=== PATIENT | male | born 2000 | race Caucasian/White ===

== ENCOUNTER 2018-06-17 23:41 | Emergency (ER) | payer MEDICAID ==
[2018-06-17 23:56] VITALS: BP 141/88
--- NOTE | 2018-06-18 00:36 | EDM.PDOC ---
ED HPI GENERAL MEDICAL PROBLEM - General Chief Complaint: Abdominal Pain Stated Complaint: abdominal pain Time Seen by Provider: 06/18/18 00:11 Source of Information: Reports: Patient, Family History Limitations: Reports: No Limitations - History of Present Illness INITIAL COMMENTS - FREE TEXT/NARRATIVE: This is a 17-year-old male. He has a J-tube. They were attempting to feed him tonight when he had a severe pain in the upper abdomen and got sick to his stomach. It has kind of eased up at this time but they did not give him his evening feed due to the pain. He indicated that sometimes the J-tube will get pulled out of the jejunum and into the stomach and when they try to feed him when it's like that he'll get abdominal pain and nausea. They're here to have him checked to see if this was happened to the J-tube. He just got off antibiotics for a sinus congestion he's had no fever no chills and no other acute symptoms. Epigastric Pain Score (Numeric/FACES): 6 - Related Data Allergies Allergy/AdvReac Type Severity Reaction Status Date / Time metoclopramide [From Reglan] Allergy Seizure Verified 06/17/18 23:56 Sulfa (Sulfonamide Allergy Stomach Verified 06/17/18 23:56 Antibiotics) Upset Home Meds: Home Meds LORazepam [LORazepam Intensol] 2 mg GTUBE BID 03/06/16 [History] Omeprazole 20 mg GTUBE DAILY 03/06/16 [History] Zolpidem [Ambien] 10 mg GTUBE BEDTIME 03/06/16 [History] atoMOXetine HCl [Strattera] 100 mg GTUBE DAILY 03/06/16 [History] cloNIDine HCl [Catapres] 0.6 mg GTUBE BEDTIME 03/06/16 [History] lamoTRIgine [Lamictal] 200 mg GTUBE BID 03/06/16 [History] risperiDONE [Risperidone] 4 mg GTUBE BID 03/06/16 [History] Naltrexone 50 mg GTUBE DAILY 06/17/18 [History] Trihexyphenidyl 5 mg GTUBE BIDMEALS 06/17/18 [History] Past Medical History Gastrointestinal History: Reports: GERD Neurological History: Reports: Seizure Endocrine/Metabolic History: Reports: Other (See Below) - Past Surgical History GI Surgical History: Reports: Other (See Below) Other GI Surgeries/Procedures: GJ tube Neurological Surgical History: Reports: Other (See Below) Social & Family History - Tobacco Use Smoking Status *Q: Never Smoker - Caffeine Use Caffeine Use: Reports: None - Recreational Drug Use Recreational Drug Use: No - Living Situation & Occupation Living situation: Reports: with Family Occupation: Student ED ROS GENERAL - Review of Systems Review Of Systems: See Below Constitutional: Denies: Fever, Chills HEENT: Reports: No Symptoms Respiratory: Reports: No Symptoms Cardiovascular: Reports: No Symptoms Endocrine: Reports: No Symptoms GI/Abdominal: Reports: Abdominal Pain, Nausea, Other (J-tube placement). Denies : Diarrhea, Vomiting : Reports: No Symptoms Musculoskeletal: Reports: No Symptoms Skin: Reports: No Symptoms Neurological: Reports: No Symptoms Psychiatric: Reports: No Symptoms Hematologic/Lymphatic: Reports: No Symptoms ED EXAM, GI/ABD - Physical Exam Exam: See Below Exam Limited By: No Limitations General Appearance: Alert, WD/WN, No Apparent Distress Eyes: Bilateral: Normal Appearance Ears: Normal External Exam Nose: Normal Inspection Throat/Mouth: Normal Lips, Normal Voice, No Airway Compromise Head: Normocephalic Neck: Supple Respiratory/Chest: No Respiratory Distress, Lungs Clear, Normal Breath Sounds Cardiovascular: Regular Rate, Rhythm, No Murmur, Tachycardia GI/Abdominal Exam: Soft, Non-Tender, Other (J-tube is in the epigastric area, it appears to be clean at the stoma no evidence of infection or drainage, palpation of the abdomen reveals some fullness in the upper abdomen but is nontender no tenderness in the lower abdomen, bowel sounds are quiet but they are present) Back Exam: Full Range of Motion Extremities: Normal Inspection, Normal Range of Motion Neurological: Alert, Oriented Psychiatric: Normal Affect, Normal Mood, Other (Slow mentation) Skin Exam: Warm, Dry Course - Vital Signs Last Recorded V/S: Last Vital Signs Temp 97.8 F 06/17/18 23:52 Pulse 106 H 06/17/18 23:52 Resp 16 06/17/18 23:52 BP 141/88 H 06/17/18 23:52 Pulse Ox 98 06/17/18 23:52 - Orders/Labs/Meds Orders: Active Orders 24 hr Category Date Time Status KUB [Abdomen 1V Flat] [CR] Stat Exams 06/18/18 00:22 Ordered - Radiology Interpretation Free Text/Narrative:: The KUB suggests that the J-tube is curled up in his stomach. I had the father, look at it and he thinks it is also curled in the stomach. - Re-Assessments/Exams Free Text/Narrative Re-Assessment/Exam: 06/18/18 01:09 Follow-up with the GI doctor on Tuesday for re-insertional readjustment of that tube. They've been dealing with this for many years and they can't figure that' s what was going on but once the x-ray to confirm it. I pushed the x-ray down to [facility]. Departure - Departure Time of Disposition: 01:10 Disposition: Home, Self-Care 01 Condition: Good Clinical Impression: Encounter for gastrojejunal tube placement - Discharge Information *PRESCRIPTION DRUG MONITORING PROGRAM REVIEWED*: Not Applicable *COPY OF PRESCRIPTION DRUG MONITORING REPORT IN PATIENT KIEL: Not Applicable Referrals: Reji Self MD [Primary Care Provider] - Forms: ED Department Discharge Additional Instructions: Follow-up with a GI doctor this week Tuesday preferably for readjustment of the J -tube replacement of the J-tube, return to the ER as needed - My Orders Last 24 Hours: My Active Orders 06/18/18 00:22 KUB [Abdomen 1V Flat] [CR] Stat - Assessment/Plan Last 24 Hours: My Active Orders 06/18/18 00:22 KUB [Abdomen 1V Flat] [CR] Stat
--- NOTE | 2018-06-18 17:55 | CR ---
Abdomen: Supine view of the abdomen was obtained. Comparison: Previous abdominal x-ray of 03/06/16. Surgical clips seen within the upper abdomen. Bowel gas pattern shows scattered gas within the colon and small bowel which does not appear obstructive. Tubing is seen within the upper abdomen. This likely is due to gastrostomy tube. Tip lies in the expected area of the proximal jejunum. Bony structures are unremarkable. No abnormal calcifications or soft tissue abnormality is seen. Impression: 1. Tubing within the upper abdomen having the appearance of gastrostomy tube. Tip likely lies within the proximal jejunum. 2. Other portions of the study are unremarkable. Diagnostic code #2
== END 2018-06-18 01:15 | disposition home or self-care (01) ==
LOC: JD.ED 23:41
DX: Z43.1 Encounter for attention to gastrostomy (principal); Z88.2 Allergy status to sulfonamides; Z88.8 Allergy status to other drugs, medicaments and biological substances; Z79.899 Other long term (current) drug therapy
CPT/HCPCS: 74018; 74018-26; 99282; 99284-25

== ENCOUNTER 2018-12-07 21:27 | Emergency (ER) | payer MEDICAID ==
[2018-12-07 21:49] VITALS: BP 102/65; PULSE 122
--- NOTE | 2018-12-07 22:19 | EDM.PDOC ---
ED HPI GENERAL MEDICAL PROBLEM - General Chief Complaint: Gastrointestinal Problem Stated Complaint: constipation Time Seen by Provider: 12/07/18 22:18 - History of Present Illness INITIAL COMMENTS - FREE TEXT/NARRATIVE: 18-year-old male brought in by his father with problems with constipation. The patient was seen by Dr. Self earlier today. And he was advised on what to do for the constipation starting tomorrow. However this evening the patient started moaning in discomfort. So the father brought him in. Patient has significant developmental delay secondary to autism spectrum disorder. The patient is fed primarily through G-tube he can take oral fluids by mouth. He has had problems with constipation in the past. Surgical history this most recent February he had closure of a gastrocutaneous fissure he had a G-tube placed in January 2018 he's had a German fundoplication. Heide hernia repair tonsillectomy and he has a nerve stimulator placed to help prevent seizures that never worked. Abdominal Pain Score (Numeric/FACES): 2 - Related Data Allergies Allergy/AdvReac Type Severity Reaction Status Date / Time metoclopramide [From Reglan] Allergy Seizure Verified 12/07/18 21:50 Sulfa (Sulfonamide Allergy Stomach Verified 12/07/18 21:50 Antibiotics) Upset Home Meds: Home Meds LORazepam [LORazepam Intensol] 2 mg GTUBE BID PRN 03/06/16 [History] Omeprazole 20 mg GTUBE DAILY 03/06/16 [History] Zolpidem [Ambien] 10 mg GTUBE BEDTIME 03/06/16 [History] atoMOXetine HCl [Strattera] 100 mg GTUBE DAILY 03/06/16 [History] cloNIDine HCl [Catapres] 0.6 mg GTUBE BEDTIME 03/06/16 [History] lamoTRIgine [Lamictal] 300 mg GTUBE BID 03/06/16 [History] risperiDONE [Risperidone] 4 mg GTUBE BID 03/06/16 [History] Naltrexone 50 mg GTUBE DAILY 06/17/18 [History] Trihexyphenidyl 5 mg GTUBE BIDMEALS 06/17/18 [History] Lactulose 10 gm PO Q12H #600 ml 12/08/18 [Rx] Past Medical History Gastrointestinal History: Reports: GERD Neurological History: Reports: Seizure Endocrine/Metabolic History: Reports: Other (See Below) - Past Surgical History GI Surgical History: Reports: Other (See Below) Other GI Surgeries/Procedures: GJ tube RUQ Neurological Surgical History: Reports: Other (See Below) Social & Family History - Caffeine Use Caffeine Use: Reports: Soda - Living Situation & Occupation Living situation: Reports: with Family Occupation: Student ED ROS GENERAL - Review of Systems Review Of Systems: See Below Constitutional: Reports: No Symptoms HEENT: Reports: No Symptoms Respiratory: Reports: No Symptoms Cardiovascular: Reports: No Symptoms Endocrine: Reports: No Symptoms GI/Abdominal: Reports: Abdominal Pain, Constipation. Denies: Nausea, Vomiting : Reports: No Symptoms Musculoskeletal: Reports: No Symptoms Skin: Reports: No Symptoms ED EXAM, GI/ABD - Physical Exam Exam: See Below Exam Limited By: No Limitations General Appearance: Alert, No Apparent Distress Head: Atraumatic, Normocephalic Neck: Normal Inspection, Supple, Non-Tender, Full Range of Motion Respiratory/Chest: No Respiratory Distress, Lungs Clear, Normal Breath Sounds Cardiovascular: Regular Rate, Rhythm, No Edema, No Murmur GI/Abdominal Exam: Normal Bowel Sounds, Soft, Non-Tender Rectal (Males) Exam: Normal Exam Back Exam: Normal Inspection. No: CVA Tenderness (L), CVA Tenderness (R) Course - Vital Signs Last Recorded V/S: Last Vital Signs Temp 36.1 C 12/07/18 21:46 Pulse 122 H 12/07/18 21:46 Resp 18 12/07/18 21:46 BP 102/65 12/07/18 21:46 Pulse Ox 98 12/07/18 21:46 - Orders/Labs/Meds Orders: Active Orders 24 hr Category Date Time Status Enema [RC] ASDIRECTED Care 12/07/18 22:49 Active Abdomen 2V AP Flat Upright [CR] Stat Exams 12/07/18 23:48 Taken - Re-Assessments/Exams Free Text/Narrative Re-Assessment/Exam: 12/08/18 01:18 I did contact [facility] in [place] to try get past medical history and past surgical history and was able to do this please refer to history of present illness for this. The patient was given several enemas with minimal success. I did repeat an x-ray as he had one done in the clinic earlier today but I don't have access to that which shows extensive stool accumulation in the right transverse and descending colon the sigmoid colon and rectum is clear stool. I was given give this some time and reattempt a soapsuds enema however the father would like to take him home and work with mag citrate. We'll give this a try one bottle of mag citrate when they get home than a half a bottle every 4 hours until they get the desired effect up to a total of 2 bottles. We'll give him a prescription for lactulose 1 tablespoon twice a day. Departure - Departure Time of Disposition: 01:20 Disposition: Home, Self-Care 01 Clinical Impression: Constipation - Discharge Information Prescriptions: Lactulose 10 gm PO Q12H #600 ml Instructions: Constipation, Adult, [id number] Referrals: Reji Self MD [Primary Care Provider] - Forms: ED Department Discharge Additional Instructions: Return to the emergency room with any questions problems or worsening symptoms. When you get home, give him a bottle of mag citrate orange picking supervisor a second bottle give half of this 4 hours if needed and repeat the second half in 4 more hours if needed. I will give you a prescription for lactulose this is a very good stool softener and it helps keep the got good and active I suspect with the medications that he is on he has multiple causes for his gut activity is slow down. - My Orders Last 24 Hours: My Active Orders 12/07/18 22:49 Enema [RC] ASDIRECTED 12/07/18 23:48 Abdomen 2V AP Flat Upright [CR] Stat - Assessment/Plan Last 24 Hours: My Active Orders 12/07/18 22:49 Enema [RC] ASDIRECTED 12/07/18 23:48 Abdomen 2V AP Flat Upright [CR] Stat
--- NOTE | 2018-12-08 08:00 | CR ---
Abdomen: Supine and upright views the abdomen were obtained. Comparison: Prior abdominal x-ray of 06/18/18. Gastrostomy tube is seen. Tip lies within stomach antrum. Minimal increased stool within the colon. Bowel gas pattern is otherwise unremarkable.. No abnormal calcifications or soft tissue abnormality is seen. Bony structures appear within normal limits. Impression: 1. Gastrostomy tube with tip lying within the stomach antrum. 2. Minimal increased stool within the colon. Diagnostic code #2
== END 2018-12-08 01:35 | disposition home or self-care (01) ==
LOC: JD.ED 21:27
DX: K59.00 Constipation, unspecified (principal); F84.0 Autistic disorder; K21.9 Gastro-esophageal reflux disease without esophagitis; Z88.2 Allergy status to sulfonamides; Z88.8 Allergy status to other drugs, medicaments and biological substances; Z79.899 Other long term (current) drug therapy
CPT/HCPCS: 74019; 74019-26; 99283-25